=== PATIENT | female | born 1995 | race Caucasian/White ===

== ENCOUNTER 2023-01-15 17:37 | Emergency (ER) | payer OTHER ==
[~2023-01-15] VITALS: Ht 157.5 cm; Wt 65.9 kg
[2023-01-15 17:44] VITALS: BP 134/88; PULSE 65; RESP 20; TEMP 98.4; O2SAT 97
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
--- NOTE | 2023-01-15 20:25 | NUR ---
Patient discharged with v/s stable. Written and verbal after care instructions given and explained. Patient verbalized understanding. Ambulatory with steady gait. All questions addressed prior to discharge. Advised to follow up with PMD.
--- NOTE | 2023-01-15 20:52 | NUR ---
The patient's care was reviewed and supervised by Olinda Bobby RN, RN.
== END 2023-01-15 20:25 | disposition home or self-care (01) ==
LOC: MED 17:37
DX: S00.83XA Contusion of other part of head, initial encounter (principal); M54.2 Cervicalgia; V49.59XA Passenger injured in collision with other motor vehicles in traffic accident, initial encounter; Y93.89 Activity, other specified; Y92.410 Unspecified street and highway as the place of occurrence of the external cause; Y99.8 Other external cause status
CPT/HCPCS: 72050; 90471; 90715; 99283